=== PATIENT | female | born 1980 ===

== ENCOUNTER 2016-09-22 15:30 | Outpatient (CLI) | payer BC ==
--- NOTE | 2016-09-22 16:22 | Ultrasound Report ---
RIGHT BREAST ULTRASOUND: 09/22/16 15:30:00 CLINICAL: 35 year-old with a right breast lump felt by her doctor. COMPARISON: None. FINDINGS: Ultrasound of the right breast(including all four quadrants and the retroareolar area) was performed and demonstrated several benign cysts and no solid mass. A cyst at 3 o'clock 5 cm from nipple measures 2.1 x 1.1 x 1.7 cm and correlates with the palpable lump felt by her doctor. A benign cyst at 6 o'clock 6 cm from the nipple measures 0.9 and 0.5-0.8 cm. A bilobed benign cyst at 11 o'clock 7 cm from the nipple measures 2.1 x 1.0 x 2.3 cm. A benign cyst at 2 o'clock 6 cm from the nipple measures 1.3 x 1.8 x 1.5 cm. IMPRESSION: Benign cysts and no suspicious finding. BI-RADS 2 - - Benign RECOMMENDATION: Clinical followup and a baseline bilateral mammogram at age 36.
== END 2016-09-22 15:31 | disposition home or self-care (01) ==
LOC: SPVWC 15:30
PROVIDERS: ATTEND Obstetrics & Gynecology
DX: N60.01 Solitary cyst of right breast (principal)